=== PATIENT | female | born 1985 | race American Indian/Alaskan Native ===

== ENCOUNTER 2017-02-19 23:08 | Emergency (ER) | payer SELFPAY ==
[2017-02-19 23:53] LABS: Basophils % (Auto) 0.9 % (0.0-1.8); Eosinophils % (Auto) 1.8 % (0.0-4.3); Hemoglobin 11.2 gm/dl (10.1-14.3); Mean Corpuscular HGB Conc 33 % (30-34); Mean Corpuscular Hemoglobin 29 pg (28-32); Mean Corpuscular Volume 88 fl (79-97); Platelet Count 254 K/mm3 (140-440); Red Blood Count 3.88 M/mm3 (3.65-5.03); Red Cell Distribution Width 15.1 % (13.2-15.2); White Blood Count 5.7 K/mm3 (4.5-11.0)
[2017-02-20 00:03] LABS: INR 0.99 (0.87-1.13)
[2017-02-20 00:04] LABS: Partial Thromboplastin Time 26.4 Sec. (24.2-36.6)
[2017-02-20 00:12] LABS: Anion Gap 18 mmol/L; BUN/Creatinine Ratio 12.85; Blood Urea Nitrogen 9 mg/dL (7-17); Calcium 8.6 mg/dL (8.4-10.2); Carbon Dioxide 24 mmol/L (22-30); Chloride 100.1 mmol/L (98-107); Glucose 104 mg/dL (65-100); Sodium 138 mmol/L (137-145)
--- NOTE | 2017-02-20 04:48 | XRay Report ---
FINAL REPORT PROCEDURE: XR CHEST ROUTINE 2V TECHNIQUE: PA and lateral chest radiographs were obtained. CPT 05599 HISTORY: PAIN COMPARISON: No prior studies are available for comparison. FINDINGS: Heart: Normal. Mediastinum/Vessels: Normal. Lungs/Pleural space: Normal. Bony thorax: No acute osseous abnormality. Other: IMPRESSION: Normal examination.
[2017-02-20] MEDS ORDERED: TORADOL IM ONE (10:59)
[2017-02-20] MEDS ORDERED: ZOFRAN ODT PO ONE (10:59)
[2017-02-20] MEDS ORDERED: TESSALON PERLES PO ONE (10:59)
--- NOTE | 2017-02-20 11:44 | Emergency Department Report ---
- General Chief Complaint: Chest Pain Stated Complaint: CHEST PAIN/SOB Time Seen by Provider: 02/20/17 10:26 Source: patient Mode of arrival: Ambulatory Limitations: No Limitations - History of Present Illness Initial Comments: 32-year-old female with a past medical history a previous presents to the Hospital complaining of cough 3 days. His complaints of chest pressure that started last night and radiates to the back. Patient had been nausea and vomiting that has improved today. Positive soft stool reported. Cough productive of yellow sputum. No sick contacts, recent travel, or fever reported. Intermittent shortness of breath reported. Pain is rated 8/10 in intensity. Patient reports that she does have intermittent wheezing episodes that are worse at night. Patient does smoke cigarettes - Related Data Previous Rx's Medication Instructions Recorded Last Taken Type Amoxicillin [Amoxicillin TAB] 875 mg PO BID #20 tablet 07/07/15 Unknown Rx Promethazine /Codeine 5 ml PO Q6H PRN #100 ml 07/07/15 Unknown Rx [Phenergan/Codeine 6.25-10 mg/5Ml] Doxycycline [Vibramycin CAP] 100 mg PO Q12HR #28 capsule 10/16/15 Unknown Rx metroNIDAZOLE [Flagyl] 500 mg PO Q12HR #14 tab 10/16/15 Unknown Rx Omeprazole [PriLOSEC] 20 mg PO QDAY #30 capsule. 12/18/15 Unknown Rx Clindamycin [Clindamycin CAP] 1 cap PO Q8H #30 cap 01/24/16 Unknown Rx traMADol [Ultram 50 MG tab] 50 mg PO Q6HR PRN #10 tablet 08/30/16 Unknown Rx ALBUTEROL Inhaler [ProAir HFA 2 puff IH QID PRN #1 inhalation 02/20/17 Unknown Rx Inhaler] Azithromycin [Zithromax Z-KAREN] 250 mg PO DAILY #1 pack 02/20/17 Unknown Rx Benzonatate [Tessalon Perles] 100 mg PO Q8HR PRN #30 capsule 02/20/17 Unknown Rx Ibuprofen [Motrin 800 MG tab] 800 mg PO Q8HR PRN #30 tablet 02/20/17 Unknown Rx Promethazine [Phenergan TAB] 25 mg PO Q6HR PRN #30 tab 02/20/17 Unknown Rx traMADol [Ultram 50 MG tab] 50 mg PO Q6HR PRN #20 tablet 02/20/17 Unknown Rx Allergies Allergy/AdvReac Type Severity Reaction Status Date / Time No Known Allergies Allergy Verified 07/27/16 16:46 ED Review of Systems ROS: Stated complaint: CHEST PAIN/SOB Other details as noted in HPI Comment: All other systems reviewed and negative Other: Constitutional: No fevers chills Eyes: No eye pain visual changes ENT: No ear pain or throat pain Neck: Denies pain Respiratory: + cough/sob Cardiovascular: + cp GI: mild abd pain, n,v, soft stools : Denies dysuria Musculoskeletal: Denies back pain Skin: Denies rash, lesions, erythema Neurologic: Denies headache, numbness, weakness Psychiatric: Denies suicidal ideation, hallucinations ED Past Medical Hx - Past Medical History Previous Medical History?: No - Surgical History Past Surgical History?: Yes Additional Surgical History: - Social History Smoking Status: Current Every Day Smoker Substance Use Type: Alcohol - Medications Home Medications: Home Medications Medication Instructions Recorded Confirmed Last Taken Type Amoxicillin [Amoxicillin TAB] 875 mg PO BID #20 tablet 07/07/15 Unknown Rx Promethazine /Codeine 5 ml PO Q6H PRN #100 ml 07/07/15 Unknown Rx [Phenergan/Codeine 6.25-10 mg/5Ml] Doxycycline [Vibramycin CAP] 100 mg PO Q12HR #28 capsule 10/16/15 Unknown Rx metroNIDAZOLE [Flagyl] 500 mg PO Q12HR #14 tab 10/16/15 Unknown Rx Omeprazole [PriLOSEC] 20 mg PO QDAY #30 capsule. 12/18/15 Unknown Rx Clindamycin [Clindamycin CAP] 1 cap PO Q8H #30 cap 01/24/16 Unknown Rx traMADol [Ultram 50 MG tab] 50 mg PO Q6HR PRN #10 tablet 08/30/16 Unknown Rx ALBUTEROL Inhaler [ProAir HFA 2 puff IH QID PRN #1 inhalation 02/20/17 Unknown Rx Inhaler] Azithromycin [Zithromax Z-KAREN] 250 mg PO DAILY #1 pack 02/20/17 Unknown Rx Benzonatate [Tessalon Perles] 100 mg PO Q8HR PRN #30 capsule 02/20/17 Unknown Rx Ibuprofen [Motrin 800 MG tab] 800 mg PO Q8HR PRN #30 tablet 02/20/17 Unknown Rx Promethazine [Phenergan TAB] 25 mg PO Q6HR PRN #30 tab 02/20/17 Unknown Rx traMADol [Ultram 50 MG tab] 50 mg PO Q6HR PRN #20 tablet 02/20/17 Unknown Rx ED Physical Exam - General Limitations: No Limitations - Other Other exam information: General: No limitations, patient is alert in no acute distress Head exam: Atraumatic, normocephalic Eyes exam: Normal appearance ENT: Moist mucous membrane, normal oropharynx Neck exam: Normal inspection, full range of motion, no meningismus nontender Respiratory exam: Clear to auscultation bilateral, no wheezes, rales, crackles Cardiovascular: Normal rate and rhythm, normal heart sounds Abdomen: Soft, nondistended, mild right-sided tenderness, with normal bowel sounds, no rebound, or guarding Extremity: Full range of motion normal inspection no deformity, no calf tenderness or edema Back: Normal Inspection, full range of motion, no tenderness Neurologic: Alert, oriented x3, cranial nerves intact, no motor or sensory deficit Psychiatric: normal affect, normal mood Skin: Warm, dry, intact ED Course Vital Signs 02/19/17 02/20/17 23:23 05:36 Temperature 98.2 F 97.6 F Pulse Rate 91 H 86 Respiratory 20 20 Rate Blood Pressure 151/102 148/103 O2 Sat by Pulse 100 99 Oximetry ED Medical Decision Making - Lab Data Result diagrams: 02/19/17 23:40 02/19/17 23:36 Lab Results 02/19/17 02/19/17 02/19/17 Range/Units 23:36 23:36 23:40 WBC 5.7 (4.5-11.0) K/mm3 RBC 3.88 (3.65-5.03) M/mm3 Hgb 11.2 (10.1-14.3) gm/dl Hct 34.0 (30.3-42.9) % MCV 88 (79-97) fl MCH 29 (28-32) pg MCHC 33 (30-34) % RDW 15.1 (13.2-15.2) % Plt Count 254 (140-440) K/mm3 Lymph % (Auto) 33.1 (13.4-35.0) % [place] % (Auto) 9.9 H (0.0-7.3) % Eos % (Auto) 1.8 (0.0-4.3) % Baso % (Auto) 0.9 (0.0-1.8) % Lymph # 1.9 (1.2-5.4) K/mm3 [place] # 0.6 (0.0-0.8) K/mm3 Eos # 0.1 (0.0-0.4) K/mm3 Baso # 0.1 (0.0-0.1) K/mm3 Seg Neutrophils % 54.3 (40.0-70.0) % Seg Neutrophils # 3.1 (1.8-7.7) K/mm3 PT 13.0 (12.2-14.9) Sec. INR 0.99 (0.87-1.13) APTT 26.4 (24.2-36.6) Sec. Sodium 138 (137-145) mmol/L Potassium 4.0 (3.6-5.0) mmol/L Chloride 100.1 (98-107) mmol/L Carbon Dioxide 24 (22-30) mmol/L Anion Gap 18 mmol/L BUN 9 (7-17) mg/dL Creatinine 0.7 (0.7-1.2) mg/dL Estimated GFR > 60 ml/min BUN/Creatinine Ratio 12.85 % Glucose 104 H (65-100) mg/dL Calcium 8.6 (8.4-10.2) mg/dL Troponin T < 0.010 (0.00-0.029) ng/mL 02/20/17 02/20/17 Range/Units 02:15 05:32 WBC (4.5-11.0) K/mm3 RBC (3.65-5.03) M/mm3 Hgb (10.1-14.3) gm/dl Hct (30.3-42.9) % MCV (79-97) fl MCH (28-32) pg MCHC (30-34) % RDW (13.2-15.2) % Plt Count (140-440) K/mm3 Lymph % (Auto) (13.4-35.0) % [place] % (Auto) (0.0-7.3) % Eos % (Auto) (0.0-4.3) % Baso % (Auto) (0.0-1.8) % Lymph # (1.2-5.4) K/mm3 [place] # (0.0-0.8) K/mm3 Eos # (0.0-0.4) K/mm3 Baso # (0.0-0.1) K/mm3 Seg Neutrophils % (40.0-70.0) % Seg Neutrophils # (1.8-7.7) K/mm3 PT (12.2-14.9) Sec. INR (0.87-1.13) APTT (24.2-36.6) Sec. Sodium (137-145) mmol/L Potassium (3.6-5.0) mmol/L Chloride (98-107) mmol/L Carbon Dioxide (22-30) mmol/L Anion Gap mmol/L BUN (7-17) mg/dL Creatinine (0.7-1.2) mg/dL Estimated GFR ml/min BUN/Creatinine Ratio % Glucose (65-100) mg/dL Calcium (8.4-10.2) mg/dL Troponin T < 0.010 < 0.010 (0.00-0.029) ng/mL - EKG Data -: EKG Interpreted by Me (normal sinus rhythm rate [address]-T wave abnormality) - EKG Data When compared to previous EKG there are: no significant change (compared to ) - Radiology Data Radiology results: report reviewed (chest x-ray: Normal) - Medical Decision Making Treated patient with Tessalon Perles, Toradol, Zofran ED. Patient stable. No wheezing or hypoxia or respiratory distress in the ED. She will be discharged for treatment for acute bronchitis and nausea - Differential Diagnosis bronchitis, pneumonia, costochondritis, MD, Critical Care Time: No Critical care attestation.: If time is entered above; I have spent that time in minutes in the direct care of this critically ill patient, excluding procedure time. ED Disposition Clinical Impression: Acute bronchitis, Viral syndrome, Elevated blood pressure reading Disposition: DISCHARGED TO HOME OR SELFCARE Is pt being admited?: No Does the pt Need Aspirin: No Condition: Stable Instructions: Acute Bronchitis (ED), Acute Nausea and Vomiting (ED), How to Take a Blood Pressure (ED) Additional Instructions: Take the medication as prescribed. Blood pressure has been elevated on your recent visits to the ER. I recommend that you continue to monitor your blood pressure outside of the hospital and follow with a primary care doctor for further management. Prescriptions: ALBUTEROL Inhaler [ProAir HFA Inhaler] 2 puff IH QID PRN #1 inhalation PRN Reason: Shortness Of Breath Azithromycin [Zithromax Z-KAREN] 250 mg PO DAILY #1 pack Benzonatate [Tessalon Perles] 100 mg PO Q8HR PRN #30 capsule PRN Reason: Cough Ibuprofen [Motrin 800 MG tab] 800 mg PO Q8HR PRN #30 tablet PRN Reason: pain Promethazine [Phenergan TAB] 25 mg PO Q6HR PRN #30 tab PRN Reason: Nausea traMADol [Ultram 50 MG tab] 50 mg PO Q6HR PRN #20 tablet PRN Reason: Pain Referrals: [facility] [Provider Group] - 3-5 Days (Primary care clinic) RYAN VILLALPANDO MD [Staff Physician] - 3-5 Days (Primary care doctor) Time of Disposition: 12:01
[2017-02-20 12:25] VITALS: BP 136/91
== END 2017-02-20 12:27 | disposition home or self-care (01) ==
LOC: ED 23:08
DX: J20.9 Acute bronchitis, unspecified (principal); B34.9 Viral infection, unspecified; R03.0 Elevated blood-pressure reading, without diagnosis of hypertension; F17.200 Nicotine dependence, unspecified, uncomplicated
CPT/HCPCS: 36415; 71020; 80048; 84484; 85025; 85610; 85730; 93005; 93010; 96372; 99285; J1885; Q0162

== ENCOUNTER 2017-04-21 11:18 | Emergency (ER) | payer OTHER ==
[2017-04-21 12:23] VITALS: BP 139/91
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
[2017-04-21 13:37] LABS: Urine Drugs of Abuse Note Disclamer
[2017-04-21 13:44] LABS: Basophils % (Auto) 1.1 % (0.0-1.8); Eosinophils % (Auto) 1.2 % (0.0-4.3); Hematocrit 37.9 % (30.3-42.9); Hemoglobin 12.3 gm/dl (10.1-14.3); Mean Corpuscular HGB Conc 33 % (30-34); Mean Corpuscular Hemoglobin 28 pg (28-32); Mean Corpuscular Volume 86 fl (79-97); Platelet Count 191 K/mm3 (140-440); Red Cell Distribution Width 16.4 % (13.2-15.2)
[2017-04-21 13:53] LABS: INR 1.06 (0.87-1.13)
[2017-04-21 13:54] LABS: Partial Thromboplastin Time 25.3 Sec. (24.2-36.6)
[2017-04-21 13:58] LABS: Bilirubin,Urine NEG (Negative); Blood,Urine NEG (Negative); Ketones,Urine NEG (Negative); Leukocyte Esterase,Urine NEG (Negative); Mucus,Urine 2+ /HPF; Nitrite,Urine NEG (Negative); Protein,Urine <15 mg/dL mg/dL (Negative)
--- NOTE | 2017-04-21 15:14 | Cat Scan Report ---
CT FACIAL BONES WITHOUT CONTRAST: INDICATION: Head injury. COMPARISON: None similar. FINDINGS: Noncontrast axial, sagittal and coronal CT reconstructions through the face demonstrate normal intracranial appearance. Symmetric eye globes with normal retrobulbar fat. Intact facial bones. Normal airway. Mild bilateral maxillary sinus mucosal thickening inferiorly. Clear remainder imaged paranasal sinuses. Normal TMJs. Mild nasal septal deviation. Patent ostiomeatal complexes bilaterally. Left-sided nasal piercing ornament. Small radiopaque dental fillings and some dental disease also noted, including malocclusion and numerous periapical cysts. CONCLUSION: No acute facial fractures. Dental disease and mild sinusitis incidentally noted, as described. Please correlate. Thank you for the opportunity to participate in this patient's care.
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
== END 2017-04-21 17:46 | disposition home or self-care (01) ==
LOC: ED 11:18
DX: S16.1XXA Strain of muscle, fascia and tendon at neck level, initial encounter (principal); S00.83XA Contusion of other part of head, initial encounter; F17.200 Nicotine dependence, unspecified, uncomplicated; F12.90 Cannabis use, unspecified, uncomplicated; Y04.2XXA Assault by strike against or bumped into by another person, initial encounter; Y93.89 Activity, other specified; Y99.8 Other external cause status; Y92.009 Unspecified place in unspecified non-institutional (private) residence as the place of occurrence of the external cause
CPT/HCPCS: 36415; 70450; 70486; 72125; 80307; 81001; 84703; 85025; 85610; 85730; 99284; G0480; 80320

== ENCOUNTER 2019-01-29 04:05 | Emergency (ER) | payer MEDICAID, OTHER ==
[2019-01-29 04:11] VITALS: BP 145/93
[2019-01-29] MEDS ORDERED: TYLENOL PO ONE (04:49)
[2019-01-29 04:50] LABS: Basophils # (Auto) 0.1 K/mm3 (0.0-0.1); Basophils % (Auto) 1.1 % (0.0-1.8); Eosinophils # (Auto) 0.2 K/mm3 (0.0-0.4); Eosinophils % (Auto) 2.9 % (0.0-4.3); Hematocrit 36.9 % (30.3-42.9); Hemoglobin 12.3 gm/dl (10.1-14.3); Lymphocytes # (Auto) 1.7 K/mm3 (1.2-5.4); Lymphocytes % (Auto) 28.6 % (13.4-35.0); Mean Corpuscular HGB Conc 33 % (30-34); Mean Corpuscular Volume 89 fl (79-97); Monocytes # (Auto) 0.6 K/mm3 (0.0-0.8); Monocytes % (Auto) 9.1 % (0.0-7.3); Platelet Count 255 K/mm3 (140-440); Red Blood Count 4.16 M/mm3 (3.65-5.03); Red Cell Distribution Width 15.5 % (13.2-15.2)
[2019-01-29 04:55] LABS: Bilirubin,Urine NEG (Negative); Blood,Urine LG (Negative); Color,Urine Red (Yellow); Urobilinogen,Urine < 2.0 mg/dL (<2.0)
[2019-01-29 04:56] LABS: Bacteria,Urine 1+ /HPF (Negative); Mucus,Urine 1+ /HPF; RBC,Urine > 182.0 /HPF (0.0-6.0); WBC,Urine > 182.0 /HPF (0.0-6.0)
--- NOTE | 2019-01-29 04:56 | Emergency Department Report ---
ED Female HPI - General Chief complaint: Vaginal Bleeding Stated complaint: BLEEDING 14 WEEKS Time Seen by Provider: 01/29/19 04:40 Source: patient Mode of arrival: Ambulatory Limitations: No Limitations - History of Present Illness Initial comments: Patient is a A0 34-year-old -[place] female with no past medical history presents to the ED with a complaint of acute onset of pelvic pain with vaginal bleeding for the last 2 hours after having sexual intercourse. Patient also says that she is likely related toeustachian event that her last known test was over 3 months ago and was positive. Patient denies nausea, v omiting, dizziness, low back pain, dysuria, urinary frequency and urgency, dyspareunia, diarrhea, fever or chills. MD Complaint: vaginal bleeding, pelvic pain -: Sudden, hour(s) (6), During the night Location: suprapubic, other (vaginal) Radiation: suprapubic, periumbillical Severity: moderate Severity scale (0 -10): 6 Quality: cramping, aching Consistency: constant Improves with: none Worsens with: intercourse Are you Now?: Yes (Approximately 14 weeks gestation) Associated Symptoms: vaginal bleeding, abdominal pain, hematuria - Related Data Sexually active: Yes : 4 Para: 3 A: 0 Previous Rx's Medication Instructions Recorded Last Taken Type Amoxicillin [Amoxicillin TAB] 875 mg PO BID #20 tablet 07/07/15 Unknown Rx Promethazine /Codeine 5 ml PO Q6H PRN #100 ml 07/07/15 Unknown Rx [Phenergan/Codeine 6.25-10 mg/5Ml] DOXYCYCLINE Hyclate [Vibramycin 100 mg PO Q12HR #28 capsule 10/16/15 Unknown Rx CAP] metroNIDAZOLE [Flagyl] 500 mg PO Q12HR #14 tab 10/16/15 Unknown Rx Omeprazole [PriLOSEC] 20 mg PO QDAY #30 capsule. 12/18/15 Unknown Rx Clindamycin [Clindamycin CAP] 1 cap PO Q8H #30 cap 01/24/16 Unknown Rx traMADol [Ultram 50 MG tab] 50 mg PO Q6HR PRN #10 tablet 08/30/16 Unknown Rx ALBUTEROL Inhaler (OR & NICU) 2 puff IH QID PRN #1 inhalation 02/20/17 Unknown Rx [ProAir HFA Inhaler] Azithromycin [Zithromax Z-KAREN] 250 mg PO DAILY #1 pack 02/20/17 Unknown Rx Benzonatate [Tessalon Perles] 100 mg PO Q8HR PRN #30 capsule 02/20/17 Unknown Rx Ibuprofen [Motrin 800 MG tab] 800 mg PO Q8HR PRN #30 tablet 02/20/17 Unknown Rx Promethazine [Phenergan] 25 mg PO Q6HR PRN #30 tab 02/20/17 Unknown Rx traMADol [Ultram 50 MG tab] 50 mg PO Q6HR PRN #20 tablet 02/20/17 Unknown Rx HYDROcodone/APAP 5-325 [[place] 1 each PO Q6HR PRN #30 tablet 04/21/17 Unknown Rx 5/325] Ibuprofen [Motrin] 800 mg PO Q8HR PRN #20 tablet 01/29/19 Unknown Rx Ondansetron [Zofran Odt] 4 mg PO Q8HR #15 tab.rapdis 01/29/19 Unknown Rx Sulfamethoxazole/Trimethoprim 1 each PO BID #20 tablet 01/29/19 Unknown Rx [Bactrim DS TAB] Allergies Allergy/AdvReac Type Severity Reaction Status Date / Time No Known Allergies Allergy Verified 07/27/16 16:46 ED Review of Systems ROS: Stated complaint: BLEEDING 14 WEEKS Other details as noted in HPI Comment: All other systems reviewed and negative Constitutional: no symptoms reported, see HPI. denies: chills, fever, weakness Eyes: as per HPI. denies: eye pain, eye discharge ENT: as per HPI. denies: ear pain, throat pain, congestion Respiratory: no symptoms reported, see HPI. denies: cough, shortness of breath, SOB with exertion, SOB at rest Cardiovascular: as per HPI. denies: chest pain, palpitations, dyspnea on exertion, syncope, paroxysmal nocturnal dyspnea Endocrine: no symptoms reported. denies: excessive sweating, intolerance to cold, increased thirst, increased urine Gastrointestinal: as per HPI, abdominal pain. denies: nausea, vomiting, diarrhea, hematemesis, hematochezia Genitourinary: as per HPI, other (Vaginal bleeding). denies: urgency, dysuria, abnormal menses, dyspareunia Musculoskeletal: as per HPI. denies: back pain, joint swelling, arthralgia Skin: as per HPI. denies: rash, lesions, change in hair/nails Neurological: as per HPI. denies: weakness, numbness, paresthesias, abnormal gait Psychiatric: as per HPI. denies: anxiety, depression, auditory hallucinations, suicidal thoughts Hematological/Lymphatic: as per HPI ED Past Medical Hx - Past Medical History Previous Medical History?: No - Surgical History Past Surgical History?: Yes Additional Surgical History: X 3 - Social History Smoking Status: Current Every Day Smoker Substance Use Type: Alcohol - Medications Home Medications: Home Medications Medication Instructions Recorded Confirmed Last Taken Type Amoxicillin [Amoxicillin TAB] 875 mg PO BID #20 tablet 07/07/15 Unknown Rx Promethazine /Codeine 5 ml PO Q6H PRN #100 ml 07/07/15 Unknown Rx [Phenergan/Codeine 6.25-10 mg/5Ml] DOXYCYCLINE Hyclate [Vibramycin 100 mg PO Q12HR #28 capsule 10/16/15 Unknown Rx CAP] metroNIDAZOLE [Flagyl] 500 mg PO Q12HR #14 tab 10/16/15 Unknown Rx Omeprazole [PriLOSEC] 20 mg PO QDAY #30 capsule. 12/18/15 Unknown Rx Clindamycin [Clindamycin CAP] 1 cap PO Q8H #30 cap 01/24/16 Unknown Rx traMADol [Ultram 50 MG tab] 50 mg PO Q6HR PRN #10 tablet 08/30/16 Unknown Rx ALBUTEROL Inhaler (OR & NICU) 2 puff IH QID PRN #1 inhalation 02/20/17 Unknown Rx [ProAir HFA Inhaler] Azithromycin [Zithromax Z-KAREN] 250 mg PO DAILY #1 pack 02/20/17 Unknown Rx Benzonatate [Tessalon Perles] 100 mg PO Q8HR PRN #30 capsule 02/20/17 Unknown Rx Ibuprofen [Motrin 800 MG tab] 800 mg PO Q8HR PRN #30 tablet 02/20/17 Unknown Rx Promethazine [Phenergan] 25 mg PO Q6HR PRN #30 tab 02/20/17 Unknown Rx traMADol [Ultram 50 MG tab] 50 mg PO Q6HR PRN #20 tablet 02/20/17 Unknown Rx HYDROcodone/APAP 5-325 [[place] 1 each PO Q6HR PRN #30 tablet 04/21/17 Unknown Rx 5/325] Ibuprofen [Motrin] 800 mg PO Q8HR PRN #20 tablet 01/29/19 Unknown Rx Ondansetron [Zofran Odt] 4 mg PO Q8HR #15 tab.rapdis 01/29/19 Unknown Rx Sulfamethoxazole/Trimethoprim 1 each PO BID #20 tablet 01/29/19 Unknown Rx [Bactrim DS TAB] ED Physical Exam - General Limitations: No Limitations General appearance: alert, in no apparent distress - Head Head exam: Present: atraumatic, normocephalic, normal inspection - Eye Eye exam: Present: normal appearance, PERRL, EOMI. Absent: conjunctival injection, periorbital swelling Pupils: Present: normal accommodation - ENT ENT exam: Present: normal exam, normal orophraynx, mucous membranes moist, TM's normal bilaterally, normal external ear exam - Neck Neck exam: Present: normal inspection, full ROM. Absent: tenderness, lymphadenopathy - Respiratory Respiratory exam: Present: normal lung sounds bilaterally, accessory muscle use. Absent: respiratory distress, wheezes - Cardiovascular Cardiovascular Exam: Present: normal rhythm, tachycardia, normal heart sounds - GI/Abdominal GI/Abdominal exam: Present: soft, tenderness (suprapubic ), normal bowel sounds. Absent: guarding, rebound - Extremities Exam Extremities exam: Present: normal inspection, full ROM, normal capillary refill - Back Exam Back exam: Present: normal inspection, full ROM. Absent: tenderness, CVA tenderness (R), CVA tenderness (L) - Neurological Exam Neurological exam: Present: alert, oriented X3, CN II-XII intact, normal gait, reflexes normal - Psychiatric Psychiatric exam: Present: normal affect - Skin Skin exam: Present: warm, dry, intact, normal color ED Course Vital Signs 01/29/19 04:08 Temperature 98.6 F Pulse Rate 100 H Respiratory 18 Rate Blood Pressure 145/93 O2 Sat by Pulse 100 Oximetry ED Medical Decision Making - Lab Data Result diagrams: 01/29/19 04:37 01/29/19 04:56 - Radiology Data Radiology results: report reviewed, image reviewed - Medical Decision Making The patient is alert and oriented 3 and is not in any distress. Labs were drawn and ultrasound ordered for the patient. Lab test results were reviewed and a CT Quant is negative. The pelvic ultrasound shows no IUP but fibroids. The patient's symptoms are likely due to fibroids in the uterus aggravated by sexual intercourse. Urinalysis also shows significant UTI. Patient was discharged home on pain medications and antibiotics and advised to follow up with her [facility] physician or primary care physician in 5-7 days for reevaluation. Patient was advised to return to the ED immediately if symptoms get worse. - Differential Diagnosis Acute UTI; Pelvic pain; , PID Critical care attestation.: If time is entered above; I have spent that time in minutes in the direct care of this critically ill patient, excluding procedure time. ED Disposition Clinical Impression: Uterine fibroid, Vaginal bleeding, abnormal, Pelvic pain, Acute urinary tract infection Disposition: TO HOME OR SELFCARE Is pt being admited?: No Does the pt Need Aspirin: No Condition: Stable Instructions: Urinary Tract Infection in Women (ED), Acute Abdominal Pain (ED), Uterine Fibroids (ED), Menstruation (ED) Additional Instructions: TAKE MEDICATIONS WITH FOOD, DRINK PLENTY OF FLUIDS AND FOLLOW UP WITH YOUR PRIMARY CARE PHYSICIAN ADVISED. RETURN TO THE ED IMMEDIATELY IF SYMPTOMS GET WORSE. Prescriptions: Sulfamethoxazole/Trimethoprim [Bactrim DS TAB] 1 each PO BID #20 tablet Ibuprofen [Motrin] 800 mg PO Q8HR PRN #20 tablet PRN Reason: Pain , Severe (7-10) Ondansetron [Zofran Odt] 4 mg PO Q8HR #15 tab.rapdis Time of Disposition: 07:28 Print Language: JAPANESE
[2019-01-29 05:39] LABS: Alanine Aminotransferase 9 units/L (7-56); Albumin 3.8 g/dL (3.9-5); BUN/Creatinine Ratio 10; Blood Urea Nitrogen 6 mg/dL (7-17); Calcium 8.7 mg/dL (8.4-10.2); Hemolysis Index 47
--- NOTE | 2019-01-29 06:59 | Ultrasound Report ---
PROCEDURE: US PELVIC COMPLETE TECHNIQUE: Real-time transabdominal sonography in multiple planes of the pelvis was performed. The p elvic structures were not optimally visualized. Transvaginal sonography was then performed to better evaluate the structures and/or abnormalities described below with image documentation. Grayscale, col or flow Doppler imaging, and velocity spectral waveform analysis of the ovaries was employed (duplex imaging). HISTORY: vaginal bleed COMPARISONS: None . FINDINGS: UTERUS Size: 10.7 x 4.6 x 5.1 cm. Endometrial thickness: 6.6 mm. Orientation: anteverted. Cervix: Normal. Fibroids/masses: There is a fibroid in the fundus measuring 17 mm.. RIGHT Ovary: Not identified. LEFT Ovary: 4.1 x 4.2 x 3 cm. Appearance: There is a 2.5 cm cyst.. Doppler images: Normal spectral waveforms and color flow images of the arterial inflow and venous out flow.. Pelvic fluid: None. IMPRESSION: Incidental uterine fibroid. There is no evidence of intrauterine or ectopic . T he right ovary is not seen. There is a cystic follicle left ovary. There is no ovarian torsion or mas s. There is no free pelvic fluid.. This document is electronically signed by Jeremias Gutierrez MD., Jan 29 2019 06:57:36 AM ET
== END 2019-01-29 07:30 | disposition home or self-care (01) ==
LOC: ED 04:05
DX: N39.0 Urinary tract infection, site not specified (principal); D25.9 Leiomyoma of uterus, unspecified; F17.200 Nicotine dependence, unspecified, uncomplicated; Z79.899 Other long term (current) drug therapy
CPT/HCPCS: 36415; 76856; 80053; 81001; 83690; 84702; 85025; 86900; 86901